=== PATIENT | female | born 1990 | race American Indian/Alaskan Native ===

== ENCOUNTER 2021-06-22 01:10 | Emergency (ER) | payer MEDICAID ==
[2021-06-22] MEDS ORDERED: dexAMETHasone 4 MG/ML VIAL PO ONE (02:04)
[2021-06-22] MEDS ORDERED: PENICILLIN G BENZATHINE 1.2 MILLION UNIT/2 ML INJ IM STA (02:04)
--- NOTE | 2021-06-22 02:41 | Emergency Department Report ---
ED ENT HPI - General Chief complaint: Sore Throat Stated complaint: SORE THROAT Time Seen by Provider: 06/22/21 02:03 Source: patient Mode of arrival: Ambulatory Limitations: No Limitations - History of Present Illness complaint: sore throat -: Gradual Location: throat Severity: mild, moderate Quality: dull Consistency: constant Improves with: none Worsens with: swallowing, eating Associated Symptoms: sore throat. denies: cough, tinnitus, rhinorrhea - Related Data Allergies Allergy/AdvReac Type Severity Reaction Status Date / Time No Known Allergies Allergy Verified 06/22/21 01:19 ED Dental HPI - General Chief complaint: Sore Throat Stated complaint: SORE THROAT Time Seen by Provider: 06/22/21 02:03 Source: patient Mode of arrival: Ambulatory Limitations: No Limitations - History of Present Illness complaint: sore throat - Related Data Allergies Allergy/AdvReac Type Severity Reaction Status Date / Time No Known Allergies Allergy Verified 06/22/21 01:19 ED Review of Systems ROS: Stated complaint: SORE THROAT Other details as noted in HPI Comment: All other systems reviewed and negative ED Past Medical Hx - Past Medical History Previous Medical History?: No - Surgical History Past Surgical History?: No ED Physical Exam - General Limitations: No Limitations General appearance: alert, in no apparent distress - Head Head exam: Present: atraumatic, normocephalic - Eye Eye exam: Present: normal appearance - ENT ENT exam: Present: mucous membranes moist, other (Pharynx red swollen with erythema airway still patent. No exudate noted. Tonsillar lymphadenopathy is noted.) - Neck Neck exam: Present: normal inspection - Respiratory Respiratory exam: Present: normal lung sounds bilaterally. Absent: respiratory distress - Cardiovascular Cardiovascular Exam: Present: regular rate, normal rhythm. Absent: systolic murmur, diastolic murmur, rubs, gallop - GI/Abdominal GI/Abdominal exam: Present: soft, normal bowel sounds - Extremities Exam Extremities exam: Present: normal inspection - Back Exam Back exam: Present: normal inspection - Neurological Exam Neurological exam: Present: alert, oriented X3 - Psychiatric Psychiatric exam: Present: normal affect, normal mood - Skin Skin exam: Present: warm, dry, intact, normal color. Absent: rash ED Medical Decision Making - Medical Decision Making 30-year-old female with no history of any compromised nontoxic appearance patient is euvolemic with no trismus no airway compromise unable to tolerate p.o. given history and examination low suspicion for this presentation being caused by peritonsillar abscess, Hemant, bacterial tracheitis, acute HIV, epiglottitis, retropharyngeal abscess. Critical care attestation.: If time is entered above; I have spent that time in minutes in the direct care of this critically ill patient, excluding procedure time. ED Disposition Clinical Impression: Pharyngitis Disposition: HOME / SELF CARE / HOMELESS Is pt being admited?: No Does the pt Need Aspirin: No Condition: Stable Instructions: Pharyngitis, Strep Throat, Adult, [id number], Upper Respiratory Infection, Adult, [id number], Pharyngitis, [id number], Sore Throat, [id number] Additional Instructions: Is treated emergency department today for pharyngitis with the antibiotics that are required to the ED eradicate your condition no further antibiotics are needed. May take [id number] analgesic medications for your throat pain in the form of spray, pills, lozenges Referrals: [facility] [Provider Group] - 3-5 Days PRIMARY [facility]ARE, [Primary Care Provider] - 3-5 Days
[2021-06-22 03:18] VITALS: BP 132/78
== END 2021-06-22 03:19 | disposition home or self-care (01) ==
LOC: ED 01:10
DX: J02.9 Acute pharyngitis, unspecified (principal)
CPT/HCPCS: 96372; 99282; J0561; J1100

== ENCOUNTER 2022-02-20 08:05 | Emergency (ER) | payer MEDICAID ==
[2022-02-20 08:54] VITALS: BP 113/62
[2022-02-20 09:56] LABS: Mucus,Urine FEW /HPF
[2022-02-20 09:57] LABS: HCG Qualitative,Urine Negative (Negative)
[2022-02-20 10:35] LABS: Bilirubin,Urine Negative (Negative); Blood,Urine Negative (Negative); Color,Urine Yellow (Yellow); Protein,Urine <15 mg/dL mg/dL (Negative); Urobilinogen,Urine < 2.0 mg/dL (<2.0)
--- NOTE | 2022-02-20 10:51 | Emergency Department Report ---
ED Dysuria HPI - HPI Chief Complaint: Urogenital-Female Stated Complaint: ABDOMINAL PAIN Time Seen by Provider: 02/20/22 10:09 Duration: 3 Days Location of Discomfort: Suprapubic Severity: Mild Symptoms: Dysuria: No, Frequency: No, Suprapubic Pain: No, Flank Pain: No, Fever: No, Hematuria: No, Abdominal Pain: No, Previous UTI's: No Other History: Patient is a 31-year-old female that comes to the ER complaining of uterine heaviness. Her last menstrual period was 3 years ago. She has irregular periods. She is not on any control. She is sexually active. She denies discharge or dysuria. She does not have an ACCOUNT SUPPORT REP. She is ambulatory, not ill nontoxic on arrival. She denies history of fibroids. ED Review of Systems ROS: Stated complaint: ABDOMINAL PAIN Other details as noted in HPI Comment: All other systems reviewed and negative ED Past Medical Hx - Past Medical History Previous Medical History?: No - Surgical History Past Surgical History?: No - Family History Family history: no significant - Social History Smoking Status: Never Smoker Substance Use Type: None Dysuria Exam - Exam General: Vital signs noted. No distress. Alert and acting appropriately. Exam: Yes Moist Mucous Membranes, No CVA Tenderness, No Abdominal Tenderness, No Rigidity or Guarding Labs: Lab Results 02/20/22 Range/Units Unknown Urine Color Yellow (Yellow) Urine Turbidity Clear (Clear) Urine pH 7.0 (5.0-7.0) Ur Specific [place] 1.010 (1.003-1.030) Urine Protein <15 mg/dl (Negative) mg/dL Urine Glucose (UA) Negative (Negative) mg/dL Urine Ketones Negative (Negative) mg/dL Urine Blood Negative (Negative) Urine Nitrite Negative (Negative) Ur Reducing Substances Not Reportable Urine Bilirubin Negative (Negative) Urine Ictotest Not Reportable Urine Urobilinogen < 2.0 (<2.0) mg/dL Ur Leukocyte Esterase Small (Negative) Urine WBC (Auto) 2.0 (0.0-6.0) /HPF Urine RBC (Auto) 1.0 (0.0-6.0) /HPF U Epithel Cells (Auto) 12.0 (0-13.0) /HPF Urine Mucus Few /HPF Urine HCG, Qual Negative (Negative) ED Course Vital Signs 02/20/22 08:50 Temperature 98.9 F Pulse Rate 61 Respiratory 16 Rate Blood Pressure 113/62 O2 Sat by Pulse 100 Oximetry ED Medical Decision Making - Medical Decision Making Labs 02/20/22 Unknown Urine Color Yellow Urine Turbidity Clear Urine pH 7.0 Ur Specific [place] 1.010 Urine Protein <15 mg/dl Urine Glucose (UA) Negative Urine Ketones Negative Urine Blood Negative Urine Nitrite Negative Ur Reducing Substances Not Reportable Urine Bilirubin Negative Urine Ictotest Not Reportable Urine Urobilinogen < 2.0 Ur Leukocyte Esterase Small Urine WBC (Auto) 2.0 Urine RBC (Auto) 1.0 U Epithel Cells (Auto) 12.0 Urine Mucus Few Urine HCG, Qual Negative Vital Signs 02/20/22 08:50 Temperature 98.9 F Pulse Rate 61 Respiratory 16 Rate Blood Pressure 113/62 O2 Sat by Pulse 100 Oximetry Labs noted. UA without infection. negative. Vital signs normal. Patient ambulatory, not ill nontoxic on exam. I discussed lab findings with patient. She is being discharged home with ACCOUNT SUPPORT REP follow-up. I explained to her that she is not bleeding, has no life-threatening emergency and needs to be seen by specialist. She verbalizes understanding. - Differential Diagnosis Rule out , UTI Critical care attestation.: If time is entered above; I have spent that time in minutes in the direct care of this critically ill patient, excluding procedure time. ED Disposition Clinical Impression: Suprapubic pain Disposition: 01 HOME / SELF CARE / HOMELESS Is pt being admited?: No Does the pt Need Aspirin: No Condition: Stable Additional Instructions: no infection neg follow up with obgyn as we discussed referral below Referrals: LINDSAY HEWITT MD [Staff Physician] - 3-5 Days Forms: Work/School Release Form(ED) Time of Disposition: 10:52
== END 2022-02-20 11:07 | disposition home or self-care (01) ==
LOC: ED 08:05
DX: R10.30 Lower abdominal pain, unspecified (principal)
CPT/HCPCS: 81001; 81025; 99283

== ENCOUNTER 2022-03-01 07:11 | Emergency (ER) | payer MEDICAID | END 2022-03-01 08:38 | disposition left against medical advice (07) | LOC: ED 07:11 | DX: R10.9 Unspecified abdominal pain (principal); Z53.21 Procedure and treatment not carried out due to patient leaving prior to being seen by health care provider ==